=== PATIENT | female | born 1985 | race Caucasian/White ===

== ENCOUNTER 2017-03-11 16:34 | Emergency (ER) | payer MEDICAID ==
[~2017-03-11] VITALS: Ht 157.5 cm; Wt 73.0 kg
[2017-03-11 16:36] VITALS: BP 130/78; PULSE 106; RESP 14; TEMP 97.7; O2SAT 99
--- NOTE | 2017-03-11 16:39 | PD ---
Physical Exam Date Seen by Provider: Mar 11, 2017 Time Seen by Provider: 16:37 Narrative 32 y/o female here with c/o Left Ear pain this am, and complaints of recent chest cold. Pain is 10/10 in left ear. No drainage. V/S Stable. Waiting bed placement. Data Data Last Documented VS Vital Signs Date Time Temp Pulse Resp B/P Pulse Ox O2 Delivery O2 Flow Rate FiO2 03/11/17 16:36 97.7 106 14 130/78 99 MDM Medical Record Reviewed: Yes Supervised Visit with WILLIE: Yes Scripts No Active Prescriptions or Reported Meds Condition: Stable Bryce Stephen Mar 11, 2017 16:39
--- NOTE | 2017-03-11 16:43 | PD ---
HPI . left ear pain since this morning Chief Complaint: ENT Complaint Time Seen by Provider: 16:43 Travel History International Travel<30 days: No Contact w/Intl Traveler<30days: No Traveled to known affect area: No History of Present Illness HPI 32-year-old female here with complaints of left earache since this morning. Patient tells me that last week she had a cold that is now resolved. This morning she decided to try to clean her ear and says she developed ear pain immediately afterwards. She does admit to using Q-tips. She has no complaints of sore throat, fever, chills, cough or congestion. PFSH Past Medical History Asthma: No Anxiety: Yes (PANIC ATTACKS) Depression: Yes Cancer: No Cardiovascular Problems: No COPD: No Cerebrovascular Accident: No Diabetes: No Diminished Hearing: No Endocrine: No Gastrointestinal Disorders: Yes GERD: Yes Genitourinary: No Hepatitis: No Hiatal Hernia: No Immune Disorder: No Musculoskeletal: No Neurologic: No Psychiatric: No Reproductive: No Respiratory: No Migraines: No Seizures: No Sleep Apnea: No Thyroid Disease: No Ulcer: No PNEUMOCCOCAL Vaccine (Year): 2 ?: Not LMP: 3 WEEKS AGO : 6 Para: 2 Miscarriage: 3 : 1 Ectopic : Yes Tubal Ligation: Yes (partial) Past Surgical History Abdominal Surgery: No AICD: No Cardiac Surgery: No Ear Surgery: No Endocrine Surgery: No Eye Surgery: No Genitourinary Surgery: No Gynecologic Surgery: Yes (eptopic preg/ tube removed) Joint Replacement: No Oral Surgery: No Pacemaker: No Thoracic Surgery: No Other Surgery: No Social History Alcohol Use: No Tobacco Use: Yes Substance Use: Yes Allergies-Medications (Allergen,Severity, Reaction): Coded Allergies: Prilosec (Verified Allergy, Intermediate, HIVES, 03/11/17) Zantac (Verified Allergy, Intermediate, redness and itching, 03/11/17) Levaquin (Verified Allergy, Mild, rash and itching in the neck, 03/11/17) Reported Meds & Prescriptions Reported Meds & Active Scripts Active Ibuprofen 800 Mg Tab 800 Mg PO TID Review of Systems General / Constitutional: No: Fever Eyes: No: Visual changes HENT: Positive: Earache (left), No: Headaches Cardiovascular: No: Chest Pain or Discomfort Respiratory: No: Shortness of Breath Gastrointestinal: No: Abdominal Pain Genitourinary: No: Dysuria Musculoskeletal: No: Pain Skin: No Rash Neurologic: No: Weakness Psychiatric: No: Depression Endocrine: No: Polydipsia Hematologic/Lymphatic: No: Easy Bruising Physical Exam Narrative GENERAL: AAO x 3, no acute distress, Well-nourished, well-developed patient. SKIN: Warm and dry. No visible rashes or bruising. HEAD: Normocephalic and atraumatic. EYES: No scleral icterus. No injection or drainage. EOM intact, PERRLA ENT: No nasal drainage noted. Mucous membranes pink. Airway patent. Mild tonsillar edema without exudates or erythema. Right TM normal. Left TM cannot visualize secondary cerumen impaction. NECK: Supple, trachea midline. No JVD. No lymphadenopathy CARDIOVASCULAR: Regular rate and rhythm without murmurs, gallops, or rubs. HR on exam 98 RESPIRATORY: Breath sounds equal bilaterally. No accessory muscle use. No rhonchi or rales. No wheezing GASTROINTESTINAL: Abdomen soft, non-tender, nondistended. EXTREMITIES: No cyanosis or edema. BACK: Nontender without obvious deformity. No CVA tenderness. PSYCH: AAO x 3, normal affect. Data Data Last Documented VS Vital Signs Date Time Temp Pulse Resp B/P Pulse Ox O2 Delivery O2 Flow Rate FiO2 03/11/17 16:36 97.7 106 14 130/78 99 Orders Ear Irrigation (03/11/17 16:48) Ibuprofen (Motrin) (03/11/17 17:45) [facility] Medical Decision Making Medical Screen Exam Complete: Yes Emergency Medical Condition: Yes Medical Record Reviewed: Yes Differential Diagnosis Left cerumen impaction, otitis media, otitis externa, sinusitis Narrative Course 32-year-old female here with complaints of left earache since this morning. Patient tells me that last week she had a cold that is now resolved. This morning she decided to try to clean her ear and says she developed ear pain immediately afterwards. She does admit to using Q-tips. She has no complaints of sore throat, fever, chills, cough or congestion. Patient seen and examined. She appears to have a left cerumen impaction. Ear irrigation ordered. Nurses performed and only a small piece of cerumen was extracted. I tried to use curette to remove the wax and patient kept jumping and started crying. She will need to see ENT for removal. Ibuprofen given for pain relief. I explained that there is no infection of the right ear, however, I am unable to tell if there is an infection of the left. I once again offered to try to remove, but she tells me she has pain. She is not certain if she can sit still. I reiterated that she will need to see ENT. She is telling me her insurance will take too long. I recommend debrox. Ibuprofen given for relief. Patient verbalized understanding of instructions, questions were answered, and thanked me for their care. I advised them if their condition worsens, please return to the nearest emergency room for further care. Diagnosis Primary Impression: Impacted cerumen of left ear Referrals: Ear / Nose / Throat Specialist Patient Instructions: Cerumen Impaction (ED), General Instructions Additional Instructions: Please return to emergency department if your symptoms return or worsen. Follow up with your primary care provider. Take medications as prescribed. Please refrain from using Q-tips. Please see ear, nose and throat specialist as we discussed. Try Debrox drops (over the counter) to see if they help loosen the wax. Med/Other Pt SpecificInfo: Prescription(s) given Scripts Ibuprofen 800 Mg [id number] Mg PO TID #21 TAB Prov:Wiliam Valdovinos MD 03/11/17 Disposition: 01 DISCHARGE HOME Condition: Stable Diane Lozano Mar 11, 2017 16:43
[2017-03-11] MEDS ORDERED: IBUP800T23 PO (17:14)
[2017-03-11] MEDS ORDERED: IBUPROFEN 800 MG TAB PO ONE (17:45)
== END 2017-03-11 17:42 | disposition home or self-care (01) ==
LOC: NEPK 16:34
DX: H61.22 Impacted cerumen, left ear (principal)
CPT/HCPCS: 69210

== ENCOUNTER 2017-10-14 18:21 | Emergency (ER) | payer MEDICAID ==
[~2017-10-14] VITALS: Ht 154.9 cm; Wt 73.0 kg
[~2017-10-14 18:21] MED LIST: IBUP1TAB7 PO
[2017-10-14 18:22] VITALS: BP 131/74; PULSE 115; RESP 16; TEMP 97.5; O2SAT 99
== END 2017-10-14 21:25 | disposition left against medical advice (07) ==
LOC: NED 18:21
DX: J02.9 Acute pharyngitis, unspecified (principal); Z53.21 Procedure and treatment not carried out due to patient leaving prior to being seen by health care provider
CPT/HCPCS: 99281

== ENCOUNTER 2017-10-31 14:09 | Emergency (ER) | payer MEDICAID ==
[2017-10-31 14:10] VITALS: BP 130/76; PULSE 114; RESP 12; TEMP 98.7; O2SAT 99
--- NOTE | 2017-10-31 15:09 | RADRPT ---
EXAM DATE/TIME: 10/31/2017 14:43 [facility] COMPARISON: No previous studies available for comparison. INDICATIONS : Chest pain and cough since last night. MEDICAL HISTORY : None. SURGICAL HISTORY : None. ENCOUNTER: Initial ACUITY: 1 day PAIN SCORE: 10/10 LOCATION: chest Middle FINDINGS: PA and lateral views of the chest demonstrate the lungs to be symmetrically aerated without evidence of mass, infiltrate or effusion. The cardiomediastinal contours are unremarkable. Osseous structure s are intact. CONCLUSION: 1. No acute cardiopulmonary disease. Herve Setvens MD on October 31, 2017 at 15:07 Board Certified Radiologist. This report was verified electronically.
--- NOTE | 2017-10-31 15:56 | PD ---
HPI Chief Complaint: Cold / Flu Symptoms Time Seen by Provider: 15:38 Travel History International Travel<30 days: No Contact w/Intl Traveler<30days: No Traveled to known affect area: No History of Present Illness HPI 32-year-old female presents to emergency department complaining of cough and cold symptoms for approximately 3 days. Patient states that she was diagnosed with strep throat a couple weeks ago, took antibiotics and her strep that resolved. Patient now has a nonproductive cough, clear rhinorrhea, with occasional nausea and one episode of vomiting. Patient states she has a "burning" in the middle of her chest that started last night. At this point, the pain is constant and mild. Patient denies radiation or any palliative or provocative factors. Patient has not taken any medication to relieve this discomfort for her cold symptoms. Patient denies fever, chills, shortness of breath, abdominal pain, hematemesis, hemoptysis. Patient denies recent travel, surgeries, fractures, blood disorders. Patient denies chronic medical issues or chronic medication use. PFSH Past Medical History Asthma: No Anxiety: Yes (PANIC ATTACKS) Depression: Yes Cancer: No Cardiovascular Problems: No COPD: No Cerebrovascular Accident: No Diabetes: No Diminished Hearing: No Endocrine: No Gastrointestinal Disorders: Yes (gerd in the past) GERD: Yes Genitourinary: No Hepatitis: No Hiatal Hernia: No Immune Disorder: No Musculoskeletal: No Neurologic: No Psychiatric: No Reproductive: No Respiratory: No Migraines: No Seizures: No Sleep Apnea: No Thyroid Disease: No Ulcer: No PNEUMOCCOCAL Vaccine (Year): 2 ?: Not LMP: 10/12/17 : 6 Para: 2 Miscarriage: 3 : 1 Ectopic : Yes Tubal Ligation: Yes (partial) Past Surgical History Abdominal Surgery: No AICD: No Cardiac Surgery: No Ear Surgery: No Endocrine Surgery: No Eye Surgery: No Genitourinary Surgery: No Gynecologic Surgery: Yes (eptopic preg/ tube removed) Joint Replacement: No Oral Surgery: No Pacemaker: No Thoracic Surgery: No Other Surgery: Yes Social History Alcohol Use: Yes (beer) Tobacco Use: Yes (1/2ppd) Substance Use: Yes Allergies-Medications (Allergen,Severity, Reaction): Coded Allergies: omeprazole (Unverified Allergy, Intermediate, HIVES, 10/14/17) ranitidine (Unverified Allergy, Intermediate, redness and itching, 10/14/17 ) levofloxacin (Unverified Allergy, Mild, rash and itching in the neck, 10/14) Reported Meds & Prescriptions Reported Meds & Active Scripts Active Prednisone 5 Mg Tab 5 Mg PO DAILY 7 Days Ibuprofen 800 Mg Tab 800 Mg PO TID Review of Systems Except as stated in HPI: all other systems reviewed are Neg Physical Exam Narrative GENERAL: Well-nourished, well-developed patient. SKIN: Focused skin assessment warm/dry. HEAD: Normocephalic. Atraumatic EYES: No scleral icterus. No injection or drainage. Ears: Bilateral cerumen impaction Nose- scant clear rhinorrhea Pharynx: Cobblestoning present without injection, tonsillar hypertrophy, or exudates. NECK: Supple, trachea midline. No JVD or lymphadenopathy. CARDIOVASCULAR: Regular rate and rhythm without murmurs, gallops, or rubs. RESPIRATORY: Breath sounds equal bilaterally. No accessory muscle use.. No wheezing, rales or rhonchi. GASTROINTESTINAL: Abdomen soft, non-tender, nondistended. MUSCULOSKELETAL: No cyanosis, or edema. BACK: Nontender without obvious deformity. No CVA tenderness. Data Data Last Documented VS Vital Signs Date Time Temp Pulse Resp B/P (MAP) Pulse Ox O2 Delivery O2 Flow Rate FiO2 10/31/17 14:10 98.7 114 12 130/76 (94) 99 Orders Orders Chest, Pa & Lat (10/31/17 ) Methylprednisolone So Succ Inj (Solumedr (10/31/17 16:00) MDM Medical Decision Making Medical Screen Exam Complete: Yes Emergency Medical Condition: Yes Differential Diagnosis Bronchitis, upper respiratory infection, influenza Narrative Course 32-year-old female presents to emergency department complaining of cough and cold symptoms for approximately 3 days. Patient states that she was diagnosed with strep throat a couple weeks ago, took antibiotics and her strep that resolved. Patient now has a nonproductive cough, clear rhinorrhea, with occasional nausea and one episode of vomiting. Patient states she has a "burning" in the middle of her chest that started last night. At this point, the pain is constant and mild. Patient denies radiation or any palliative or provocative factors. Patient has not taken any medication to relieve this discomfort for her cold symptoms. Patient denies fever, chills, shortness of breath, abdominal pain, hematemesis, hemoptysis. Patient denies recent travel, surgeries, fractures, blood disorders. Patient denies chronic medical issues or chronic medication use. Vital signs stable. Chest x-ray without acute process. Physical exam findings without evidence of wheezing. SoluMedrol 125 mg IM administered in the emergency department. History & physical consistent with a viral bronchitis. Patient advised follow-up with a primary care physician within 2-3 days. Advised to return to the emergency department for worsening or persistent symptoms. Diagnosis Primary Impression: Bronchitis Referrals: [facility] Patient Instructions: Acute Bronchitis (ED), General Instructions Additional Instructions: Follow up with your primary care physician within 2-3 days. If your symptoms persist or worsen, return to the emergency department. Take all medications as prescribed. Consider Zyrtec, Claritin, or Gabriela for your runny nose as there may be an allergy component to your symptoms. Scripts Prednisone (Prednisone) 5 Mg Tab 5 MG PO DAILY for 7 Days, #7 TAB 0 Refills Prov: Lili Webb MD 10/31/17 Disposition: 01 DISCHARGE HOME Condition: Stable Kitty Luu Oct 31, 2017 15:55
[2017-10-31] MEDS ORDERED: PRED5TAB PO (15:57)
[2017-10-31] MEDS ORDERED: methylPREDNISolone SOD SUCC 125 MG/2 ML VIAL IM ONE (16:00)
== END 2017-10-31 16:33 | disposition home or self-care (01) ==
LOC: NEPK 14:09
DX: J40 Bronchitis, not specified as acute or chronic (principal); R11.2 Nausea with vomiting, unspecified; F41.9 Anxiety disorder, unspecified; F32.9 Major depressive disorder, single episode, unspecified; K21.9 Gastro-esophageal reflux disease without esophagitis; F17.200 Nicotine dependence, unspecified, uncomplicated; Z79.899 Other long term (current) drug therapy
CPT/HCPCS: 71020; 96372; 99283; J2930

== ENCOUNTER 2017-12-13 08:24 | Emergency (ER) | payer MEDICAID ==
[~2017-12-13] VITALS: Ht 154.9 cm; Wt 71.0 kg
[~2017-12-13 08:24] MED LIST changes: +PRED5TAB PO
[2017-12-13 08:26] VITALS: BP 116/74; PULSE 95; RESP 13; TEMP 96; O2SAT 100
--- NOTE | 2017-12-13 09:16 | PD ---
HPI Chief Complaint: Cold / Flu Symptoms Time Seen by Provider: 08:49 Travel History International Travel<30 days: No Contact w/Intl Traveler<30days: No Traveled to known affect area: No History of Present Illness HPI 32-year-old female presents to the emergency department complaint of headache, nasal congestion, and "a little bit" of nausea times a few days. Reports a little bit of ear pain. Denies sore throat. Denies abdominal pain, vomiting. Denies shortness of breath or chest pain. Denies fevers. Symptoms are mild in severity. Has taken Tylenol for symptom management. No known aggravating or relieving factors. No primary care provider. Allergies to antiacids and levofloxacin. Denies significant past medical superior has no other medical complaints. No other modifying factors or associated signs and symptoms. PFSH Past Medical History Asthma: No Anxiety: Yes (PANIC ATTACKS) Depression: Yes Cancer: No Cardiovascular Problems: No COPD: No Cerebrovascular Accident: No Diabetes: No Diminished Hearing: No Endocrine: No Gastrointestinal Disorders: Yes (gerd in the past) GERD: Yes Genitourinary: No Hepatitis: No Hiatal Hernia: No Immune Disorder: No Musculoskeletal: No Neurologic: No Psychiatric: No Reproductive: No Respiratory: No Migraines: No Seizures: No Sleep Apnea: No Thyroid Disease: No Ulcer: No Influenza Vaccination: No PNEUMOCCOCAL Vaccine (Year): 2 ?: Not LMP: 12/09/17 : 6 Para: 2 Miscarriage: 3 : 1 Ectopic : Yes Tubal Ligation: Yes (partial) Past Surgical History Abdominal Surgery: No AICD: No Cardiac Surgery: No Ear Surgery: No Endocrine Surgery: No Eye Surgery: No Genitourinary Surgery: No Gynecologic Surgery: Yes (eptopic preg/ tube removed) Joint Replacement: No Oral Surgery: No Pacemaker: No Thoracic Surgery: No Other Surgery: Yes Social History Alcohol Use: Yes (2 BEERS A NIGHT) Tobacco Use: Yes (1/2 PPD) Substance Use: Yes (PT DENIES) Allergies-Medications (Allergen,Severity, Reaction): Coded Allergies: omeprazole (Unverified Allergy, Intermediate, HIVES, 10/14/17) ranitidine (Unverified Allergy, Intermediate, redness and itching, 10/14/17 ) levofloxacin (Unverified Allergy, Mild, rash and itching in the neck, 10/14) Reported Meds & Prescriptions Reported Meds & Active Scripts Active Ibuprofen 800 Mg Tab 800 Mg PO Q6HR PRN Nasonex Nasal [place] (Mometasone Furoate) 50 Mcg/Act Naspr 2 [place] EACH NARE DAILY PRN Prednisone 5 Mg Tab 5 Mg PO DAILY 7 Days Ibuprofen 800 Mg Tab 800 Mg PO TID Review of Systems Except as stated in HPI: all other systems reviewed are Neg Physical Exam Narrative GENERAL: Well-nourished, well-developed female patient, in no acute distress; afebrile, nontoxic-appearing SKIN: Warm and dry. No rash. HEAD: Atraumatic. Normocephalic. EYES: Pupils equal and round. No scleral icterus. No injection or drainage. ENT: Mucosa pink and moist. No erythema or exudates. No uvular edema. No uvular , palatal, or tonsillar deviation. Airway patent. EARS: Bilateral pinnae and external canals appear within normal limits. Unable to visualize bilateral tympanic membranes second very to bilateral cerumen impaction. NECK: Trachea midline. No lymphadenopathy. CARDIOVASCULAR: Regular rate and rhythm. No murmur appreciated. RESPIRATORY: No accessory muscle use. Clear to auscultation. Breath sounds equal bilaterally. No retractions or tachypnea. GASTROINTESTINAL: Abdomen soft, non-tender, nondistended. Hepatic and splenic margins not palpable. Bowel sounds are active 4 quadrants. MUSCULOSKELETAL: No obvious deformities. No clubbing. No cyanosis. No edema. NEUROLOGICAL: Awake and alert. Oriented 3. No obvious cranial nerve deficits. Motor grossly within normal limits. Normal speech. Moves all extremities. 5/5 strength to all extremities. PSYCHIATRIC: Appropriate mood and affect; insight and judgment normal. Data Data Last Documented VS Vital Signs Date Time Temp Pulse Resp B/P (MAP) Pulse Ox O2 Delivery O2 Flow Rate FiO2 12/13/17 10:31 12/13/17 08:43 Room Air 12/13/17 08:26 96.0 95 13 100 Orders Orders Influenzae A/B Antigen (12/13/17 08:32) Ibuprofen (Motrin) (12/13/17 09:30) Ed Discharge Order (12/13/17 10:24) MDM Medical Decision Making Medical Screen Exam Complete: Yes Emergency Medical Condition: Yes Medical Record Reviewed: Yes Differential Diagnosis Sinusitis, upper respiratory infection, viral illness, influenza Narrative Course 32-year-old female physical exam consistent with viral illness and bilateral cerumen impaction. Patient is afebrile and nontoxic-appearing. Denies fever, vomiting. Ibuprofen and influenza ordered. Influenza negative. Instructed patient to use [id number] ear drops for cerumen impaction. Discussed viral illness and symptom management.Instructed patient to follow up with primary care provider. Patient verbalizes understanding and agreement with treatment plan. Patient is medically cleared and stable for discharge. Discussed reasons to return to the emergency department. Patient agrees with treatment plan. The patients vital signs are stable and the patient is stable for outpatient follow-up and treatment. Patient discharged home, stable and in no acute distress. Diagnosis Primary Impression: Viral illness Additional Impression: Impacted cerumen of left ear Referrals: [facility] Primary Care Physician Patient Instructions: Cerumen Impaction (ED), Cold Symptoms (ED), General Instructions, Safe Use of Cough and Cold Medicines (ED) Departure Forms: Tests/Procedures, Work Release Additional Instructions: Ibuprofen or Tylenol as instructed and as needed for fever/pain [id number] cough and cold medications as directed and as needed for symptom management Get plenty of sleep/rest Drink plenty of fluids to prevent dehydration; popsicles and Gatorade Use an air humidifier/turn off ceiling fans Follow-up with primary care provider Return immediately to the emergency department with worsening of symptoms Med/Other Pt SpecificInfo: Prescription(s) given Scripts Ibuprofen (Ibuprofen) 800 Mg Tab 800 MG PO Q6HR Y for PAIN, #30 TAB 0 Refills Prov: Gladis Allison 12/13/17 Mometasone Nasal [place] (Nasonex Nasal [place]) 50 Mcg/Act Naspr 2 SPRAY EACH NARE DAILY Y for NASAL CONGESTION, #1 BOTTLE 0 Refills Prov: Gladis Allison 12/13/17 Disposition: DISCHARGE HOME Condition: Stable Gladis Allison Dec 13, 2017 09:16
[2017-12-13] MEDS ORDERED: IBUPROFEN 800 MG TAB PO ONE (09:30)
[2017-12-13] MEDS ORDERED: MOME17I EACH NARE (10:24)
[2017-12-13] MEDS ORDERED: IBUP1TAB7 PO (10:24)
== END 2017-12-13 10:35 | disposition home or self-care (01) ==
LOC: NEPD 08:24
DX: B34.9 Viral infection, unspecified (principal); H61.23 Impacted cerumen, bilateral; F41.9 Anxiety disorder, unspecified; F32.9 Major depressive disorder, single episode, unspecified; K21.9 Gastro-esophageal reflux disease without esophagitis; F17.200 Nicotine dependence, unspecified, uncomplicated; Z88.8 Allergy status to other drugs, medicaments and biological substances; Z79.899 Other long term (current) drug therapy
CPT/HCPCS: 87804; 99283